=== PATIENT | female | born 1960 | race Caucasian/White ===

== ENCOUNTER 2016-08-02 09:45 | Outpatient (CLI) | payer BC | END 2016-08-02 20:35 | disposition home or self-care (01) | LOC: SMA 09:45 | PROVIDERS: ATTEND Specialist | DX: Z12.31 Encounter for screening mammogram for malignant neoplasm of breast (principal) | CPT/HCPCS: 77067; G0202 ==

== ENCOUNTER 2017-08-11 08:52 | Outpatient (CLI) | payer BC | END 2017-08-11 20:25 | disposition home or self-care (01) | LOC: SMA 08:52 | PROVIDERS: ATTEND Specialist | DX: Z12.31 Encounter for screening mammogram for malignant neoplasm of breast (principal) | CPT/HCPCS: 77067 ==

== ENCOUNTER 2018-08-13 09:53 | Outpatient (CLI) | payer BC | END 2018-08-13 20:25 | disposition home or self-care (01) | LOC: SMA 09:53 | PROVIDERS: ATTEND Specialist | DX: Z12.31 Encounter for screening mammogram for malignant neoplasm of breast (principal) | CPT/HCPCS: 77067 ==

== ENCOUNTER 2019-09-06 08:59 | Outpatient (CLI) | payer BC | END 2019-09-06 19:50 | disposition home or self-care (01) | LOC: SMA 08:59 | PROVIDERS: ATTEND Specialist | DX: Z12.31 Encounter for screening mammogram for malignant neoplasm of breast (principal) | CPT/HCPCS: 77067 ==

== ENCOUNTER 2020-09-24 10:27 | Outpatient (CLI) | payer BC | END 2020-09-24 14:00 | disposition home or self-care (01) | LOC: SMA 10:27 | PROVIDERS: ATTEND Specialist | DX: Z12.31 Encounter for screening mammogram for malignant neoplasm of breast (principal) | CPT/HCPCS: 77067 ==